=== PATIENT | male | born 1985 | race African-American/Black ===

== ENCOUNTER 2022-09-03 22:04 | Emergency (ER) | payer OTHER ==
[~2022-09-03] VITALS: Ht 177.8 cm; Wt 106.8 kg
[2022-09-03 22:43] LABS: BASOPHILS # (AUTO) 0.1 X10'3 (0-0.2); BASOPHILS % (AUTO) 0.6 % (0-1); EOSINOPHILS # (AUTO) 0.6 X10'3 (0-0.9); EOSINOPHILS % (AUTO) 6.3 % (0-6); HEMATOCRIT 36.6 % (42.0-52.0); HEMOGLOBIN 12.7 g/dl (14.0-17.9); LYMPHOCYTES # (AUTO) 2.7 X10'3 (1.1-4.8); LYMPHOCYTES % (AUTO) 30.4 % (21-51); MEAN CORPUSCULAR HGB CONC 34.6 g/dL (33.0-36.5); MEAN CORPUSCULAR VOLUME 83.7 FL (78-98); MEAN PLATELET VOLUME 7.9 FL (7.4-10.4); MONOCYTES # (AUTO) 0.6 X10'3 (0-0.9); MONOCYTES % (AUTO) 6.7 % (2-12); PLATELET COUNT 287 X10'3 (140-440); RED BLOOD COUNT 4.38 X10'6 (4.70-6.10); RED CELL DISTRIBUTION WIDTH 13.9 % (11.5-14.5); WHITE BLOOD COUNT 8.9 X10'3 (4.5-11.0)
[2022-09-03 23:24] LABS: CLARITY,URINE CLEAR (Clear); COLOR,URINE YELLOW (Yellow); GLUCOSE, URINE NEGATIVE (Neg); KETONES,URINE TRACE mg/dl (Neg); LEUKOCYTE ESTERASE ,URINE NEGATIVE (Neg); NITRITES, URINE NEGATIVE (Neg); OCCULT BLOOD,URINE NEGATIVE (Neg); PROTEIN,URINE NEGATIVE (Neg); UROBILINOGEN,URINE 0.2 E.U/dL (0.2-1.0)
[2022-09-03 23:25] LABS: UA COLLECTION TYPE URINAL
[2022-09-04 00:06] LABS: URINE AMPHETAMINE SCREEN NEGATIVE (Neg); URINE BARBITUATE SCREEN NEGATIVE (Neg); URINE BENZODIAZEPINES SCREEN NEGATIVE (Neg); URINE CANNABINOID SCREEN POSITIVE (Neg); URINE COCAINE SCREEN NEGATIVE (Neg); URINE METHADONE SCREEN NEGATIVE (Neg); URINE OPIATE SCREEN NEGATIVE (Neg); URINE PHENCYCLIDINE SCREEN NEGATIVE (Neg)
[2022-09-04] MEDS ORDERED: ketorolac trometh. 30mg/ml inj. IM ONE ×2 (01:00→19:45)
[2022-09-04] MEDS ORDERED: buPROPion SR 150mg tablet PO STA (01:01)
[2022-09-04] MEDS ORDERED: prazosin 5mg capsule PO SCH (01:05)
[2022-09-04] MEDS: QUEtiapine 25mg tablet PO SCH ×2 (01:18→19:59)
[2022-09-04 01:29] LABS: ALANINE AMINOTRANSFERASE 78 U/L (12-78); ALBUMIN/GLOBULIN RATIO 1.2 (1.1-1.5); ALKALINE PHOSPHATASE 72 IU/L (46-116); ANION GAP 12 (8-16); ASPARTATE AMINO TRANSFERASE 30 U/L (10-37); BILIRUBIN,TOTAL 0.4 MG/DL (0.1-1.0); BLOOD UREA NITROGEN 17 MG/DL (7-18); BUN/CREATININE RATIO 15.5 (5.4-32.0); CALCIUM 9.2 MG/DL (8.5-10.1); CHLORIDE 104 MMOL/L (99-107); GLUCOSE 112 MG/DL (70-104); POTASSIUM 3.6 MMOL/L (3.5-5.1); SODIUM 140 MMOL/L (135-145); TOTAL CARBON DIOXIDE 23.8 MMOL/L (24-32); TOTAL PROTEIN 7.4 G/DL (6.4-8.2); eGFR > 90 ML/MIN
[2022-09-04 01:38] LABS: ETHANOL < 0.010 GM/DL (0.0-0.010); LIPASE < 50 U/L (73-393)
[2022-09-04] MEDS ORDERED: prazosin 1mg capsule PO STA (01:46)
--- NOTE | 2022-09-04 02:51 | NUR ---
Pt stated he has no active suicidal thoughts, and no plan or intent. Pt. is resting in bed
--- NOTE | 2022-09-04 06:30 | NUR ---
Dangelo. ambulated from the main ER accompanied by Humberto. His belongings were inventoried and valuables were inventoried and stored in safe.
[2022-09-04] MEDS ORDERED: PRAZ2CAP2 PO (07:43)
[2022-09-04] MEDS ORDERED: BUPR150T8 PO (07:43)
[2022-09-04] MEDS ORDERED: TOP100T PO (07:43)
[2022-09-04] MEDS ORDERED: AMLO5TAB PO (07:43)
[2022-09-04] MEDS ORDERED: SUMA50TA17 PO (07:43)
[2022-09-04] MEDS ORDERED: DULO-31 PO (07:43)
[2022-09-04] MEDS ORDERED: CETI-90 PO (07:43)
[2022-09-04] MEDS ORDERED: DICL50TA8 PO (07:43)
[2022-09-04] MEDS ORDERED: BUDE10.2 INH (07:43)
[2022-09-04] MEDS ORDERED: ALB0.5UD NEB (07:43)
--- NOTE | 2022-09-04 08:11 | NUR ---
tech faxed facesheet to [facility], tech also faxed a late meal request tray for pt
--- NOTE | 2022-09-04 08:37 | NUR ---
Pt. sleeping on his right side at this time, rise and fall of chest noted. No s/s of discomfort are noted.
[2022-09-04] MEDS ORDERED: non-formulary drug (Diclofenac Sodium 1 TAB) PO PRN (09:50)
--- NOTE | 2022-09-04 10:15 | NUR ---
Per Dr. Venegas, pt's Wellbutrin to be administered starting tonight since he recently received it at approximately 0100.
--- NOTE | 2022-09-04 10:31 | NUR ---
Pt. continues to sleep at this time, laying on his left side, rr are even and unlabored.
[2022-09-04] MEDS ORDERED: SUMAtriptan 25 MG tablet PO PRN (10:40)
[2022-09-04] MEDS: amLODIPine 5mg tablet PO SCH (10:51)
[2022-09-04] MEDS: cetirizine 10mg tablet PO SCH (10:51)
[2022-09-04] MEDS: topiramate 100mg tablet PO SCH ×2 (10:51→19:59)
[2022-09-04] MEDS: duloxetine 30mg CAPSULE.DR PO SCH (10:52)
--- NOTE | 2022-09-04 11:00 | NUR ---
1:1 assessment completed at bedside, pt. is endorsing passive S/I with no current plan. He also endorses command A/SHARP "Sometimes." When further questioned regarding what the voices say, pt. stated, "It just depends on the context of the situation."
[2022-09-04] MEDS ORDERED: albuterol 2.5 MG/3 ML nebule NEB PRN (11:05)
--- NOTE | 2022-09-04 11:15 | NUR ---
Pt. talking to [facility] at bedside at this time.
[2022-09-04] MEDS ORDERED: pantoprazole 40mg Tablet.DR PO ONE (11:40)
--- NOTE | 2022-09-04 11:45 | NUR ---
Pt. c/o mid abdominal pain and dark brown colored diarrhea. Upon assessment, abdomen is soft and bowl sounds are active X4 quadrants. This was endorsed to Dr. Venegas who gave orders for Protonix 40mg and an occult blood in stool test. Pt. is laying in bed resting at this time, will continue to monitor closely.
--- NOTE | 2022-09-04 12:12 | NUR ---
Pt. sitting up eating lunch at this time. Stool sample was obtained and sent to lab. Stool appears normal, brown in color, and soft.
--- NOTE | 2022-09-04 12:57 | NUR ---
Pt's is at bedside at this time
[2022-09-04 13:12] LABS: OCCULT BLOOD STOOL NEGATIVE (Neg)
--- NOTE | 2022-09-04 13:59 | NUR ---
Pt's remains at bedside, they are waiting to talk to [facility] criminal justice social worker regarding a placement update.
--- NOTE | 2022-09-04 14:13 | NUR ---
PT's updated insurance information/Facesheet was faxed to [facility] per request.
[2022-09-04] MEDS ORDERED: ibuprofen 200mg tablet PO ONE (15:06)
--- NOTE | 2022-09-04 15:17 | NUR ---
Pt. continues to c/o abdominal pain at this time, however no s/s of distress noted. This was endorsed to Dr. Mejia and obtained an order for Ibuprofen. Will continue to monitor closely
--- NOTE | 2022-09-04 17:19 | NUR ---
Pt. is sleeping at this time, laying on left side, rise and fall of chest noted.
--- NOTE | 2022-09-04 18:04 | NUR ---
PT CALLED, TECH GAVE PT THE PHONE TO TALK TO HER
--- NOTE | 2022-09-04 18:07 | NUR ---
TECH GAVE PT THEIR DINNER TRAY
--- NOTE | 2022-09-04 18:10 | NUR ---
Pt. is sitting up eating dinner at this time.
[2022-09-04] MEDS: budesonide 0.5mg/2ml UD nebule IH PRN (18:45)
[2022-09-04] MEDS: buPROPion SR 150mg tablet PO SCH (19:59)
[2022-09-04] MEDS ORDERED: topiramate 100mg tablet PO SCH (20:00)
[2022-09-04] MEDS: prazosin 5mg capsule PO SCH (20:13)
--- NOTE | 2022-09-05 06:31 | NUR ---
Received pt. sleeping, laying on his right side, rr even and unlabored.
[2022-09-05] MEDS ORDERED: duloxetine 30mg CAPSULE.DR PO SCH (08:00)
[2022-09-05] MEDS ORDERED: amLODIPine 5mg tablet PO SCH (08:00)
[2022-09-05] MEDS ORDERED: cetirizine 10mg tablet PO SCH (08:00)
--- NOTE | 2022-09-05 08:04 | NUR ---
Pt. awoken for breakfast, sitting up eating at this time.
[2022-09-05] MEDS: budesonide 0.5mg/2ml UD nebule IH PRN (08:21)
[2022-09-05] MEDS: buPROPion SR 150mg tablet PO SCH ×2 (08:37→19:34)
[2022-09-05] MEDS: cetirizine 10mg tablet PO SCH (08:37)
[2022-09-05] MEDS: duloxetine 30mg CAPSULE.DR PO SCH (08:37)
[2022-09-05] MEDS: topiramate 100mg tablet PO SCH ×2 (08:37→19:35)
[2022-09-05] MEDS: amLODIPine 5mg tablet PO SCH (08:38)
--- NOTE | 2022-09-05 10:29 | NUR ---
Pt. sleeping at this time, laying on his left side, rise and fall of chest noted.
--- NOTE | 2022-09-05 10:59 | NUR ---
Pt. taken in a w/c to CT at this time accompainied by Tech and security.
[2022-09-05] MEDS ORDERED: pantoprazole 40mg Tablet.DR PO ONE (11:00)
--- NOTE | 2022-09-05 11:13 | NUR ---
Per [facility], Jovan JARAMILLO is looking at accepting pt., however they require a CT scan of his abdominal area and a PCR Covid test. This was endorsed to Dr. Sandy and orders were obtained. Pt. continues to report abdominal pain and is requesting another Toradol injection, however he appears to have been resting comfortably and no s/s of distress noted. This was endorsed to Dr. Sandy who ordered Protonix 40mg. Will continue to monitor pt. closely.
--- NOTE | 2022-09-05 12:16 | NUR ---
Pt. is laying on his left side sleeping at this time. RR are even and unlabored.
--- NOTE | 2022-09-05 14:33 | NUR ---
Pt. up to use the BR at this time.
--- NOTE | 2022-09-05 16:33 | NUR ---
Pt. continues to lay in bed and appears to be resting comfortably. He c/o abdominal pain, this was endorsed to Dr. Sandy and obtained orders for Ibuprofen 600mg.
[2022-09-05] MEDS ORDERED: ibuprofen 200mg tablet PO ONE (16:35)
--- NOTE | 2022-09-05 17:05 | NUR ---
Pt's is at bedside at this time.
--- NOTE | 2022-09-05 19:11 | NUR ---
One to one with the patient who was pleasant and cooperative. He currently denies or suicidal thoughts. He reports frustration regarding safety restrictions put in place. He was updated regarding placement. He is requesting his medications early.
[2022-09-05] MEDS ORDERED: acetaminophen 325mg tablet PO ONE (19:15)
[2022-09-05] MEDS: prazosin 5mg capsule PO SCH (19:34)
[2022-09-05] MEDS: QUEtiapine 25mg tablet PO SCH (19:35)
--- NOTE | 2022-09-05 20:18 | NUR ---
The patient appears to be sleeping
--- NOTE | 2022-09-05 21:01 | NUR ---
The patient appearsa to be sleeping
--- NOTE | 2022-09-05 22:26 | NUR ---
The patient appears to be sleeping
--- NOTE | 2022-09-06 01:00 | NUR ---
The patient appears to be sleeping
--- NOTE | 2022-09-06 01:39 | NUR ---
The patient appears to be sleeping
--- NOTE | 2022-09-06 02:30 | NUR ---
The patient appears to be sleeping
--- NOTE | 2022-09-06 03:44 | NUR ---
The patient appears to be sleeping
--- NOTE | 2022-09-06 05:35 | NUR ---
The patient appeared to have slept well during the night
--- NOTE | 2022-09-06 06:50 | NUR ---
RN moved patient over in his hospital bed from Main 10 to ED OF Bed 23. No distress observed.
[2022-09-06 08:23] VITALS: BP_DIAS 70
[2022-09-06 08:36] VITALS: BP_SYST 128
[2022-09-06] MEDS: amLODIPine 5mg tablet PO SCH (08:36)
[2022-09-06] MEDS: duloxetine 30mg CAPSULE.DR PO SCH (08:36)
[2022-09-06] MEDS: cetirizine 10mg tablet PO SCH (08:36)
[2022-09-06] MEDS: buPROPion SR 150mg tablet PO SCH (08:36)
[2022-09-06] MEDS: topiramate 100mg tablet PO SCH (08:36)
--- NOTE | 2022-09-06 09:48 | NUR ---
Patient accepted at [facility] in [place]. Dr. Bisi Segura. Transport arrangemtents being made.
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
== END 2022-09-06 12:20 ==
LOC: ER 22:05
DX: R45.851 Suicidal ideations (principal); Z20.822 Contact with and (suspected) exposure to COVID-19; F31.9 Bipolar disorder, unspecified; F12.10 Cannabis abuse, uncomplicated; Z91.018 Allergy to other foods; Z79.899 Other long term (current) drug therapy
CPT/HCPCS: 36415; 80053; 80305; 80320; 81003; 82272; 83690; 84439; 84443; 84480; 85025; 87635; 87811; 96372; 99285; C9803; J1885; 94760